=== PATIENT | male | born 1955 | race Caucasian/White ===

== ENCOUNTER 2024-09-05 09:15 | Emergency (ER) | payer BC, OTHER ==
[~2024-09-05] VITALS: Ht 175.3 cm; Wt 94.8 kg
[2024-09-05 09:18] VITALS: BP 156/79; PULSE 81; O2SAT 98
[2024-09-05 09:55] VITALS: RESP 18
[2024-09-05] MEDS ORDERED: IPRA3AMP31 NEB (11:43)
[2024-09-05 12:13] VITALS: TEMP 97.6
== END 2024-09-05 12:14 | disposition home or self-care (01) ==
LOC: ER 09:15
DX: J45.909 Unspecified asthma, uncomplicated (principal)
CPT/HCPCS: 71045; 93005; 99283

== ENCOUNTER 2024-12-21 09:17 | Emergency (ER) | payer BC ==
[~2024-12-21] VITALS: Ht 172.7 cm; Wt 95.5 kg
[~2024-12-21 09:17] MED LIST: IPRA3AMP31 NEB
[2024-12-21 09:28] VITALS: BP 146/71; PULSE 68; RESP 18; TEMP 98.9; O2SAT 94
[2024-12-21 10:30] LABS: BASOPHILS # (AUTO) 0.1 X10'3 (0-0.2); BASOPHILS % (AUTO) 1.1 % (0-1); EOSINOPHILS # (AUTO) 0.2 X10'3 (0-0.9); EOSINOPHILS % (AUTO) 3.2 % (0-6); HEMOGLOBIN 15.5 g/dl (14.0-17.9); LYMPHOCYTES # (AUTO) 1.8 X10'3 (1.1-4.8); LYMPHOCYTES % (AUTO) 25.7 % (21-51); MEAN CORPUSCULAR HEMOGLOBIN 30.1 PG (27.0-31.0); MEAN CORPUSCULAR HGB CONC 33.6 g/dL (33.0-36.5); MEAN CORPUSCULAR VOLUME 89.4 FL (78-98); MEAN PLATELET VOLUME 9.2 FL (7.4-10.4); MONOCYTES # (AUTO) 0.5 X10'3 (0-0.9); MONOCYTES % (AUTO) 7.3 % (2-12); NEUTROPHILS # (AUTO) 4.5 X10'3 (1.8-7.7); NEUTROPHILS % (AUTO) 62.7 % (42-75); PLATELET COUNT 261 X10'3 (140-440); RED BLOOD COUNT 5.15 X10'6 (4.70-6.10); RED CELL DISTRIBUTION WIDTH 13.9 % (11.5-14.5); WHITE BLOOD COUNT 7.2 X10'3 (4.5-11.0)
[2024-12-21 10:39] LABS: ALANINE AMINOTRANSFERASE 38 U/L (12-78); ALBUMIN 3.9 G/DL (3.4-5.0); ALBUMIN/GLOBULIN RATIO 1.2 (1.1-1.5); ALKALINE PHOSPHATASE 58 IU/L (46-116); ANION GAP 6 (8-16); ASPARTATE AMINO TRANSFERASE 24 U/L (10-37); BILIRUBIN,TOTAL 0.6 MG/DL (0.1-1.0); BLOOD UREA NITROGEN 11 MG/DL (7-18); BUN/CREATININE RATIO 11.3 (10.0-20.0); CALCIUM 8.8 MG/DL (8.5-10.1); CHLORIDE 106 MMOL/L (99-107); CREATININE 0.97 MG/DL (0.60-1.10); GLUCOSE 138 MG/DL (70-104); LIPASE 25 U/L (16-77); POTASSIUM 4.3 MMOL/L (3.5-5.1); SODIUM 141 MMOL/L (135-145); TOTAL CARBON DIOXIDE 29.4 MMOL/L (24-32); TOTAL PROTEIN 7.2 G/DL (6.4-8.2); eCRCL 70 ML/MIN; eGFR 77 ML/MIN
--- NOTE | 2024-12-21 11:53 | Physician Documentation ---
History of Present Illness ~ Chief Complaint: Diarrhea Stated Complaint: DIARRHEA AND COUGH Primary Medical Doctor: [facility] Medication Reconciliation Allergies: Coded Allergies: No Known Allergies (Unverified , 02/19/17) Scheduled Ipratropium/Albuterol Sulfate (Duoneb 2.5-0.5 Mg/3 Ml Soln), 1 VIAL NEB Q12H Past Medical History Past Medical History: No Pertinent History Past Surgical History: noncontributory Drug Use: none Lives with: Family Lives In: Home Occupation: employed Physical Exam Vital Signs: Temperature: 98.9, Source: Temporal, Heart Rate: 68, Respiratory Rate: 18, BP: 146/71, Pulse Oximetry: 94, Weight: 95.450 Oxygen Flow Rate: 0 Progress Results/Orders Results/Orders Vital Signs 12/21/24 09:28 Temp 98.9 Pulse 68 Resp 18 B/P (MAP) 146/71 Pulse Ox 94 O2 Flow Rate 0 Laboratory Tests Test 12/21/24 10:00 White Blood Count 7.2 Red Blood Count 5.15 Hemoglobin 15.5 Hematocrit 46.0 Mean Corpuscular Volume 89.4 Mean Corpuscular Hemoglobin 30.1 Mean Corpuscular Hemoglobin Concent 33.6 Red Cell Distribution Width 13.9 Platelet Count 261 Mean Platelet Volume 9.2 Neutrophils (%) (Auto) 62.7 Lymphocytes (%) (Auto) 25.7 Monocytes (%) (Auto) 7.3 Eosinophils (%) (Auto) 3.2 Basophils (%) (Auto) 1.1 H Neutrophils # (Auto) 4.5 Lymphocytes # (Auto) 1.8 Monocytes # (Auto) 0.5 Eosinophils # (Auto) 0.2 Basophils # (Auto) 0.1 CBC Comment Sodium Level 141 Potassium Level 4.3 Chloride Level 106 Carbon Dioxide Level 29.4 Anion Gap 6 L Blood Urea Nitrogen 11 Creatinine 0.97 Estimated GFR/1.73 m2 77 BUN/Creatinine Ratio 11.3 Glucose Level 138 H Calcium Level 8.8 Total Bilirubin 0.6 Aspartate Amino Transf (AST/SGOT) 24 Alanine Aminotransferase (ALT/SGPT) 38 Alkaline Phosphatase 58 Total Protein 7.2 Albumin 3.9 Globulin 3.3 Albumin/Globulin Ratio 1.2 Lipase 25 Chemistry Comments Departure Referrals: NO PRIMARY CARE PROVIDER (PCP) Additional Comment Medical Screen Exam 69 y/o male with c/o diarrhea x 2months. States last night he believes he woke up 10x due to diarrhea. States that he has been to [facility] where he goes for his primary care but states he has not had any stool testing or work up and symptoms not improving. No nausea or vomiting. No fever, chills, blood in stool. States his abdomen feels "tight' but denies pain. PEx: No acute distress, abdomen is soft, generalized ttp, but no peritoneal signs. a/p: Diarrhea, Subacute. Recommend stool studies and labs. Patient stable to wait for room for further evaluation/treatment. The note accurately reflects work and decisions made by me.Nessa ZUÑIGA 12/21/24 11:52 NESSA ASHFORD December 21, 2024 11:53
[2024-12-22] MEDS ORDERED: DIPH-186 PO (09:11)
[2024-12-22] MEDS ORDERED: ALBU8HFA INH (10:26)
[2024-12-22] MEDS ORDERED: BUDE10.2 INH (10:26)
[2024-12-22] MEDS ORDERED: DEC4T PO (10:27)
== END 2024-12-21 14:08 | disposition left against medical advice (07) ==
LOC: ER 09:18
DX: R19.7 Diarrhea, unspecified (principal); R05.9 Cough, unspecified; Z53.21 Procedure and treatment not carried out due to patient leaving prior to being seen by health care provider
CPT/HCPCS: 36415; 80053; 83690; 85025; 99283

== ENCOUNTER 2024-12-22 07:23 | Emergency (ER) | payer BC ==
[~2024-12-22] VITALS: Ht 172.7 cm; Wt 98.1 kg
[2024-12-22 07:29] VITALS: TEMP 98.1
[2024-12-22 08:46] LABS: BASOPHILS # (AUTO) 0.1 X10'3 (0-0.2); BASOPHILS % (AUTO) 1.2 % (0-1); EOSINOPHILS # (AUTO) 0.2 X10'3 (0-0.9); EOSINOPHILS % (AUTO) 3.4 % (0-6); HEMOGLOBIN 14.6 g/dl (14.0-17.9); LYMPHOCYTES # (AUTO) 1.6 X10'3 (1.1-4.8); LYMPHOCYTES % (AUTO) 23.2 % (21-51); MEAN CORPUSCULAR HEMOGLOBIN 30.2 PG (27.0-31.0); MEAN CORPUSCULAR HGB CONC 33.9 g/dL (33.0-36.5); MEAN PLATELET VOLUME 8.6 FL (7.4-10.4); MONOCYTES # (AUTO) 0.6 X10'3 (0-0.9); MONOCYTES % (AUTO) 8.6 % (2-12); NEUTROPHILS # (AUTO) 4.5 X10'3 (1.8-7.7); NEUTROPHILS % (AUTO) 63.6 % (42-75); PLATELET COUNT 235 X10'3 (140-440); RED BLOOD COUNT 4.83 X10'6 (4.70-6.10); RED CELL DISTRIBUTION WIDTH 13.7 % (11.5-14.5); WHITE BLOOD COUNT 7.1 X10'3 (4.5-11.0)
[2024-12-22 09:01] LABS: ALANINE AMINOTRANSFERASE 37 U/L (12-78); ALBUMIN 3.6 G/DL (3.4-5.0); ALBUMIN/GLOBULIN RATIO 1.2 (1.1-1.5); ALKALINE PHOSPHATASE 52 IU/L (46-116); ANION GAP 6 (8-16); ASPARTATE AMINO TRANSFERASE 19 U/L (10-37); BILIRUBIN,TOTAL 0.4 MG/DL (0.1-1.0); BLOOD UREA NITROGEN 11 MG/DL (7-18); BUN/CREATININE RATIO 12.9 (10.0-20.0); CALCIUM 8.6 MG/DL (8.5-10.1); CHLORIDE 107 MMOL/L (99-107); CREATININE 0.85 MG/DL (0.60-1.10); GLUCOSE 124 MG/DL (70-104); LIPASE 23 U/L (16-77); POTASSIUM 3.9 MMOL/L (3.5-5.1); SODIUM 141 MMOL/L (135-145); TOTAL CARBON DIOXIDE 28.1 MMOL/L (24-32); TOTAL PROTEIN 6.6 G/DL (6.4-8.2); eCRCL 79 ML/MIN; eGFR 89 ML/MIN
[2024-12-22] MEDS ORDERED: diphenoxylate/atropine 2.5mg/0.025mg per 5ml oral solution PO PRN (09:10)
[2024-12-22] MEDS ORDERED: DIPH-186 PO (09:11)
--- NOTE | 2024-12-22 09:13 | Physician Documentation ---
History of Present Illness ~ Chief Complaint: Diarrhea Stated Complaint: FLUE LIKE SYMPTOMS Time Seen by MD: 08:39 OK to notify your PCP?: Yes Primary Medical Doctor: [facility] Source: patient, family, RN/, RN notes reviewed, old records Mode of Arrival: POV Exam Limitations: no limitations HPI This patient has a couple of complaints. He came because he has had severe diarrhea in the last 24 hours. No triggers. No sick contacts denies eating any bad food not sure out happened denies any bloody stools foul-smelling stools den ies any recent antibiotics. Patient has been taking some Pepto-Bismol feels very colicky in gassy with hyperactive bowel sounds this is report otherwise he is feeling well. He is more concerned also by the fact that he has been coughing for about two months he has had some inhalers does not seem to be working well getting progressively worse also has a few sneezing episodes as we ll. He denies any phlegm fevers or chills symptoms are intermittent. He is now here for evaluation. Albuterol seems to help Medication Reconciliation Allergies: Coded Allergies: No Known Allergies (Unverified , 12/22/24) Scheduled Budesonide/Formoterol Fumarate (Symbicort 160-4.5 Mcg Inhaler), 1 PUFFS INH Q12H Dexamethasone* (Decadron*), 1 TAB PO DAILY Diphenoxylate HCl/Atropine (Lomotil 2.5-0.025 mg Tablet), 1 TAB PO Q8H Ipratropium/Albuterol Sulfate (Duoneb 2.5-0.5 Mg/3 Ml Soln), 1 VIAL NEB Q12H Scheduled PRN albuterol inhaler (Pro-Air Inhaler), 2 PUFFS INH Q4HPRN PRN for wheezing Past Medical History Past Medical History: No Pertinent History Past Surgical History: noncontributory Smoking Status: Never smoker Drug Use: none Lives with: Family Lives In: Home Occupation: employed Review of Systems All Other Systems at this time: Reviewed and Negative Physical Exam Vital Signs: RN Vital Signs have been reviewed: Yes, Temperature: 98.1, Source: Temporal, Heart Rate: 63, Respiratory Rate: 17, BP: 141/96, Pulse Oximetry: 98, Weight: 98.100 Physical Exam General: The patient is well developed, well nourished, nontoxic appearing and is in no acute distress. Skin: [place], warm and dry with no rashes. HEENT: Head was normocephalic and atraumatic. Eyes - pupils equal, round, reactive to light and accommodation. Extraocular movements were intact. Conjunctivae were nonicteric. The mouth and oropharynx were clear with moist mucous membranes. There were no pharyngeal exudates or erythema. Neck: Supple and nontender. There was no jugular venous distention, Chest: Clear to auscultation bilaterally without wheezes, rales or rhonchi. No accessory muscle use. No dullness to percussion. Tight expiratory phase decrea sed breath sounds Heart: Rate regular and rhythmic. S1, S2. No murmurs. Palpation of the chest wall was normal. No rubs or thrills. Abdomen: Soft, nontender and slightly distended. Positive hyperactive bowel sounds. No guarding or rebound. No hepatosplenomegaly or palpable masses. Extremities: No cyanosis, clubbing or edema. The patient moves all extremities. Pulses were equal and symmetric. Neurologic: Motor sensory grossly intact Psychologic: The patient was oriented to person, place and time. The patient demonstrated appropriate judgement and insight. Progress Results/Orders Reviewed/noted all lab results: Yes Results/Orders Orders - FIDEL ARAUJO MD Svn Treatment (12/22/24 09:09) Completed Orders - FIDEL ARAUJO MD Urinalysis, Cult If Indicated (12/22/24 08:15) Cbc/Diff (12/22/24 08:15) BMP (12/22/24 08:15) Lipase (12/22/24 08:15) CMP (12/22/24 08:15) Diphenoxylate/Atrop. Oral Kady (Lomotil 2 (12/22/24 09:10) Dicyclomine Capsule (Bentyl Capsule) (12/22/24 09:10) Dexamethasone Inj (Decadron 10mg/Ml Inj) (12/22/24 09:09) Ipratropium/Albuterol Nebule (Ipratrop/A (12/22/24 09:10) Diphenoxylate/Atropine Tablet (Lomotil T (12/22/24 09:35) Medications Received in ER Medications (Trade) Dose Ordered Sig/Vineet Route PRN Reason Start Time Stop Time Status Last Admin Dose Admin (Bentyl capsule) 10 mg ONCE ONCE PO 12/22/24 09:10 12/22/24 09:11 DC 12/22/24 09:28 10 MG (Decadron 10mg/ ml inj) 10 mg ONCE STAT PO 12/22/24 09:09 12/22/24 09:11 DC 12/22/24 09:28 10 MG (ipratrop/ albuterol 0.5-3(2.5) MG/3ml nebule) 3 ml ONCE ONCE NEB 12/22/24 09:10 12/22/24 09:13 DC 12/22/24 09:30 3 ML (Lomotil tablet) 1 tab ONCE ONCE PO 12/22/24 09:35 12/22/24 09:36 DC 12/22/24 09:44 1 TAB Vital Signs 12/22/24 12/22/24 12/22/24 07:29 09:31 09:38 Temp 98.1 Pulse 63 54 72 Resp 17 18 16 B/P (MAP) 141/96 Pulse Ox 98 99 100 O2 Delivery Room Air* Room Air* O2 Flow Rate 0 0 FiO2 21 21 Laboratory Tests Test 12/22/24 08:37 12/22/24 09:44 White Blood Count 7.1 Red Blood Count 4.83 Hemoglobin 14.6 Hematocrit 43.0 Mean Corpuscular Volume 89.0 Mean Corpuscular Hemoglobin 30.2 Mean Corpuscular Hemoglobin Concent 33.9 Red Cell Distribution Width 13.7 Platelet Count 235 Mean Platelet Volume 8.6 Neutrophils (%) (Auto) 63.6 Lymphocytes (%) (Auto) 23.2 Monocytes (%) (Auto) 8.6 Eosinophils (%) (Auto) 3.4 Basophils (%) (Auto) 1.2 H Neutrophils # (Auto) 4.5 Lymphocytes # (Auto) 1.6 Monocytes # (Auto) 0.6 Eosinophils # (Auto) 0.2 Basophils # (Auto) 0.1 CBC Comment Sodium Level 141 Potassium Level 3.9 Chloride Level 107 Carbon Dioxide Level 28.1 Anion Gap 6 L Blood Urea Nitrogen 11 Creatinine 0.85 Estimated GFR/1.73 m2 89 BUN/Creatinine Ratio 12.9 Glucose Level 124 H Calcium Level 8.6 Total Bilirubin 0.4 Aspartate Amino Transf (AST/SGOT) 19 Alanine Aminotransferase (ALT/SGPT) 37 Alkaline Phosphatase 52 Total Protein 6.6 Albumin 3.6 Globulin 3.0 Albumin/Globulin Ratio 1.2 Lipase 23 Chemistry Comments Urine Specimen Description Non-specified Urine Color Yellow Urine Clarity Clear Urine pH 6.0 Urine Specific [place] 1.020 Urine Protein Negative Urine Glucose (UA) Negative Urine Ketones Negative Urine Occult Blood Negative Urine Nitrite Negative Urine Bilirubin Negative Urine Urobilinogen 0.2 Urine Leukocyte Esterase Negative Urine Culture Indicated Not ind Volume Urine Centrifuged 10 ml Urine Comment Re-Evaluation Re-Evaluation : Re-Evaluation: Improved Progress Patient was seen and examined. Patient was given reassurance. Patient received a neb treatments feeling much better. Patient's laboratory work was obtained and within normal limits no electrolyte abnormalities. Patient received a breathing treatment is feeling much better afterwards and on re-evaluation patient subjectively feels much better also breath sounds are without wheezing but taking full breaths no prolonged expiratory phase good air movement. Patien t received Bentyl Decadron as well as Lomotil. Patient was then discharged home to follow up with their regular physician as needed return if there was any bloody stools high fever or any worsening symptoms. Patient's laboratory work did not show any leukocytosis chemistry was within normal limits no electrolyte abnormalities. Patient's abdomen is soft unlikely to be infectious, there appears to be no peritonitis unlikely to have surgical emergency. Patient is comfortable feeling much better after neb treatment. Continuous clinical research monitor interpretation shows normal sinus rhythm heart rate 60s, no ectopy, normal, my interpretation. Pulse oximetry monitor interpretation shows normal oxygenation 99% room air, normal, my interpretation. Medical Decision Making Additional info obtained from: old records Diff Dx N/V/D:Considerations: Include: Appendicitis, Bowel obstruction, Dehydration, Diarrhea - bacterial, Diarrhea - viral, Diverticulitis, Diverti culosis, Electrolyte imbalance, Food poisoning, Gastroenteritis, GI bleed, Hepatitis, Hernia, Hypovolemia, Hypotension, Inflammatory BD, Impaction, Pancreatitis, Urinary obstruction, UTI, Urolithiasis, Other Departure Disposition: 01 HOME / SELF CARE / HOMELESS Impression: Primary Impression: Diarrhea Qualified Codes: R19.7 - Diarrhea, unspecified Additional Impression: Cough Qualified Codes: R05.2 - Subacute cough Condition: Stable Referrals: NO PRIMARY CARE PROVIDER (PCP) Prescriptions Dexamethasone* (Decadron*) 4 Mg Tablet 1 TAB PO DAILY for 5 Days, #5 TAB Prov: FIDEL ARAUJO MD 12/22/24 Budesonide/Formoterol Fumarate (Symbicort 160-4.5 Mcg Inhaler) 160 Mcg-4.5 Mcg/Actuation Hfa.aer.ad 1 PUFFS INH Q12H for 30 Days, #10.2 GM 0 Refills Prov: FIDEL ARAUJO MD 12/22/24 albuterol inhaler (Pro-Air Inhaler) 8.5 Gm Inhaler 2 PUFFS INH Q4HPRN PRN for wheezing for 30 Days, #18 GM Prov: FIDEL ARAUJO MD 12/22/24 Diphenoxylate HCl/Atropine (Lomotil 2.5-0.025 mg Tablet) 2.5 Mg-0.025 Mg Tablet 1 TAB PO Q8H for 3 Days, #10 TAB 0 Refills Prov: FIDEL ARAUJO MD 12/22/24 Education Educated: Patient Educated regarding: diagnosis, treatment, need for follow up, other Signature Scribe Signature: No scribed Attestation: The note accurately reflects work and decisions made by me.Fidel Araujo MD 12/22/24 10:25 FIDEL ARAUJO MD December 22, 2024 09:13
[2024-12-22] MEDS: dicyclomine 10 MG capsule PO ONE (09:28)
[2024-12-22] MEDS: dexamethasone sod phosphate 10mg/ml inj PO STA (09:28)
[2024-12-22] MEDS: ipratropium/albuterol 3ml nebule NEB ONE (09:30)
[2024-12-22] MEDS ORDERED: diphenoxylate/atropine tablet (Lomotil) PO ONE (09:30)
[2024-12-22 09:31] VITALS: PULSE 54; RESP 18; O2SAT 99
[2024-12-22 09:38] VITALS: PULSE 72; RESP 16; O2SAT 100
[2024-12-22] MEDS: diphenoxylate/atropine tablet (Lomotil) PO ONE (09:44)
[2024-12-22] MEDS ORDERED: BUDE10.2 INH (10:26)
[2024-12-22] MEDS ORDERED: ALBU8HFA INH (10:26)
[2024-12-22] MEDS ORDERED: DEC4T PO (10:27)
[2024-12-22 10:28] LABS: BILIRUBIN,URINE NEGATIVE (Neg); CLARITY,URINE CLEAR (Clear); COLOR,URINE YELLOW (Yellow); GLUCOSE, URINE NEGATIVE (Neg); KETONES,URINE NEGATIVE (Neg); LEUKOCYTE ESTERASE ,URINE NEGATIVE (Neg); NITRITES, URINE NEGATIVE (Neg); OCCULT BLOOD,URINE NEGATIVE (Neg); PROTEIN,URINE NEGATIVE (Neg); UROBILINOGEN,URINE 0.2 E.U/dL (0.2-1.0)
[2024-12-22 10:30] LABS: UA COLLECTION TYPE NON-SPECIFIED
[2024-12-22 10:50] VITALS: BP 153/61; PULSE 57; RESP 16; O2SAT 99
== END 2024-12-22 10:52 | disposition home or self-care (01) ==
LOC: ER 07:24
DX: R19.7 Diarrhea, unspecified (principal); R05.9 Cough, unspecified
CPT/HCPCS: 36415; 80053; 81003; 83690; 85025; 94640; 99284; J1100; 94760